=== PATIENT | male | born 1985 | race Caucasian/White ===

== ENCOUNTER → 2020-11-17 | Outpatient (CLI) | payer BC, OTHER | LOC: ULTRA 14:20 | PROVIDERS: ATTEND Otolaryngology | DX: R22.1 Localized swelling, mass and lump, neck (principal) ==

== ENCOUNTER → 2020-12-01 | Outpatient (CLI) | payer BC, OTHER ==
--- NOTE | 2020-12-04 17:07 | PATH ---
[facility] [address] [place] [address] PATHOLOGY RPT PROCEDURE Name: KELBY PIKE Room #: REG [facility] MMckenna.#: [id number] Admission: 12/01/20 Date of : 87 Discharge: Report #: [id number] Path Case #: [id number] [facility] Accession Number: [id number] . 01 Material submitted: . neck - RIGHT SUBMANDIBULAR MASS BIOPSY. Modifiers: right . 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 - Fragments of fibrovascular tissue with reactive changes. (IUV:pantograph ii engraver; 12/04/2020) [facility] 12/04/2020 1657 Local . 02 Comment: Please note sample may not be entirely lead generation representative; correlate clinically and followup as indicated. (IUV:pantograph ii engraver; 12/04/2020) . 02 Electronically signed: . Katia Georges MD, Pathologist NPI- [id number] . 01 Gross description: . Received in formalin labeled "Kelby Pike, submandibular mass" are multiple rosales-white cylindrical soft tissue fragments measuring in aggregate 1.5 x 0.3 x 0.1 cm. The specimen is submitted entirely in cassettes A1-A2. ([facility] [place]; 12/03/2020) [facility] 12/03/2020 1220 Local . 02 Pathologist provided ICD-10: K11.8 . 02 CPT . 592930 Specimen Comment: A courtesy copy of this report has been sent to [phone], [phone] Specimen Comment: [phone] Specimen Comment: Report sent to / DR HURT Performed at: [address] [id number] MD Steve Smith MD Phone: [phone] Performed at: [address] [id number] [address] [address] PATHOLOGY RPT PROCEDURE Name: KELBY PIKE ROBERT Room #: REG ERNIE Coburn#: [id number] Admission: 12/01/20 Date of : 87 Discharge: Report #: [id number] Path Case #: [id number] MD Katia Georges MD Phone: [phone]
== END | disposition home or self-care (01) ==
LOC: ULTRA 09:43
PROVIDERS: ATTEND Otolaryngology
DX: K11.8 Other diseases of salivary glands (principal)